=== PATIENT | female | born 1990 | race Caucasian/White ===

== ENCOUNTER 2018-03-25 01:46 | Emergency (ER) | payer MEDICAID ==
[~2018-03-25] VITALS: Ht 162.6 cm; Wt 84.0 kg
[2018-03-25 02:15] VITALS: BP 112/69
[2018-03-25] MEDS ORDERED: amoxicillin 250mg capsule PO ONE (02:35)
[2018-03-25] MEDS ORDERED: ibuprofen tablet 400 MG TABLET PO ONE (02:35)
[2018-03-25] MEDS ORDERED: IBUP-1986 PO (02:36)
[2018-03-25] MEDS ORDERED: AMOX500C2 PO (02:36)
[2018-03-25] MEDS ORDERED: HYDR-569 PO (02:36)
== END 2018-03-25 02:58 | disposition home or self-care (01) ==
LOC: ER 01:46
DX: K02.9 Dental caries, unspecified (principal); K08.89 Other specified disorders of teeth and supporting structures; J45.909 Unspecified asthma, uncomplicated
CPT/HCPCS: 99283

== ENCOUNTER 2018-11-12 10:39 | Emergency (ER) | payer MEDICAID ==
[~2018-11-12] VITALS: Ht 162.6 cm; Wt 99.1 kg
[~2018-11-12 10:39] MED LIST: ACET-812 PO; HYDR-4383 PO; IBUP-1986 PO
[2018-11-12 12:46] LABS: URINE HCG NEGATIVE (NEG)
[2018-11-12] MEDS ORDERED: PENI500T2 PO (13:07)
[2018-11-12] MEDS ORDERED: acetaminophen 325mg tablet PO ONE (13:15)
[2018-11-12 13:24] VITALS: BP 126/80
== END 2018-11-12 13:26 | disposition home or self-care (01) ==
LOC: ER 10:39
DX: K08.89 Other specified disorders of teeth and supporting structures (principal); J45.909 Unspecified asthma, uncomplicated; Z79.899 Other long term (current) drug therapy
CPT/HCPCS: 81025; 99283

== ENCOUNTER 2019-06-24 17:11 | Emergency (ER) | payer MEDICAID ==
[~2019-06-24] VITALS: Ht 162.6 cm; Wt 67.0 kg
[2019-06-24] MEDS ORDERED: normal saline 1000ML IV soln IVB ONE (17:50)
[2019-06-24] MEDS ORDERED: ondansetron/PF 4mg/2ml inj IV ONE (17:50)
[2019-06-24 17:55] LABS: URINE HCG NEGATIVE (NEG)
[2019-06-24 17:56] LABS: CLARITY,URINE SLIGHTLY CLOUDY (Clear); COLOR,URINE YELLOW (Yellow); GLUCOSE, URINE NEGATIVE (Neg); KETONES,URINE >=80 mg/dl (Neg); LEUKOCYTE ESTERASE ,URINE NEGATIVE (Neg); NITRITES, URINE NEGATIVE (Neg); OCCULT BLOOD,URINE TRACE-INTACT (Neg); PH,URINE 5.5 (4.8-8.0); PROTEIN,URINE NEGATIVE (Neg)
[2019-06-24 17:59] LABS: UA COLLECTION TYPE CLN CATCH MIDSTREAM
[2019-06-24 18:02] LABS: BACTERIA,URINE 1+ /HPF (Neg); MUCUS STRANDS MANY /LPF (Neg); RBC,URINE 0-2 /HPF (0-2); SQUAMOUS EPITHELIAL CELL,UR MANY /LPF (FEW); WBC,URINE 0-4 /HPF (0-4)
[2019-06-24] MEDS ORDERED: ondansetron 4mg rapidly disintigrating tab PO ONE (18:30)
--- NOTE | 2019-06-24 19:08 | NUR ---
unable to insert IV. PA is aware IV meds canceled. PO meds ordered
[2019-06-24] MEDS ORDERED: ONDA4TAB6 PO (19:21)
[2019-06-24 19:31] VITALS: BP 105/58
== END 2019-06-24 19:33 | disposition home or self-care (01) ==
LOC: ER 17:11
DX: R11.2 Nausea with vomiting, unspecified (principal); R10.13 Epigastric pain; R30.0 Dysuria; J45.909 Unspecified asthma, uncomplicated; Z79.899 Other long term (current) drug therapy
CPT/HCPCS: 36415; 81001; 81025; 99283; J2405

== ENCOUNTER 2020-05-19 20:39 | Emergency (ER) | payer MEDICAID ==
[~2020-05-19] VITALS: Ht 162.6 cm; Wt 58.0 kg
[~2020-05-19 20:39] MED LIST changes: +ONDA4TAB6 PO
[2020-05-19 21:26] LABS: COLOR,URINE YELLOW (Yellow); GLUCOSE, URINE NEGATIVE (Neg); KETONES,URINE NEGATIVE (Neg); LEUKOCYTE ESTERASE ,URINE NEGATIVE (Neg); NITRITES, URINE NEGATIVE (Neg); OCCULT BLOOD,URINE LARGE (Neg); PROTEIN,URINE TRACE mg/dl (Neg); UROBILINOGEN,URINE >=8.0 E.U/dL (0.2-1.0)
[2020-05-19 21:32] LABS: URINE HCG NEGATIVE (NEG)
[2020-05-19 21:35] LABS: CLARITY,URINE SLIGHTLY CLOUDY (Clear); UA COLLECTION TYPE CLN CATCH MIDSTREAM
[2020-05-19] MEDS ORDERED: pantoprazole 40 MG vial IV ONE (21:35)
[2020-05-19] MEDS ORDERED: normal saline 1000ML IV soln IVB ONE (21:35)
[2020-05-19] MEDS ORDERED: ondansetron/PF 4mg/2ml inj IV ONE (21:35)
[2020-05-19] MEDS ORDERED: morphine 4 MG/ML inj SYRINge IV ONE (21:35)
[2020-05-19 21:36] LABS: BACTERIA,URINE FEW /HPF (Neg); MUCUS STRANDS FEW /LPF (Neg); RBC,URINE 0-2 /HPF (0-2); SQUAMOUS EPITHELIAL CELL,UR MODERATE /LPF (FEW); WBC,URINE 0-4 /HPF (0-4)
[2020-05-19] MEDS ORDERED: ONDA8TAB13 PO (21:53)
[2020-05-19] MEDS ORDERED: PANT-47 PO (21:53)
[2020-05-19 22:02] LABS: BASOPHILS # (AUTO) 0.1 X10'3 (0-0.2); BASOPHILS % (AUTO) 0.5 % (0-1); EOSINOPHILS # (AUTO) 0.1 X10'3 (0-0.9); EOSINOPHILS % (AUTO) 1.1 % (0-6); HEMATOCRIT 41.7 % (35.0-45.0); HEMOGLOBIN 14.4 g/dl (12.0-16.0); LYMPHOCYTES % (AUTO) 18.8 % (21-51); MEAN CORPUSCULAR HEMOGLOBIN 30.2 PG (27.0-31.0); MEAN CORPUSCULAR HGB CONC 34.6 g/dL (33.0-36.5); MEAN CORPUSCULAR VOLUME 87.2 FL (78-98); MEAN PLATELET VOLUME 7.9 FL (7.4-10.4); MONOCYTES # (AUTO) 0.5 X10'3 (0-0.9); NEUTROPHILS # (AUTO) 7.7 X10'3 (1.8-7.7); NEUTROPHILS % (AUTO) 74.6 % (42-75); PLATELET COUNT 263 X10'3 (140-440); RED BLOOD COUNT 4.78 X10'6 (4.20-5.60); RED CELL DISTRIBUTION WIDTH 13.3 % (11.5-14.5); WHITE BLOOD COUNT 10.4 X10'3 (4.5-11.0)
[2020-05-19 22:16] LABS: ALANINE AMINOTRANSFERASE 6 U/L (12-78); ALBUMIN 3.7 G/DL (3.4-5.0); ALBUMIN/GLOBULIN RATIO 1.2 (1.1-1.5); ALKALINE PHOSPHATASE 48 IU/L (46-116); ANION GAP 11 (8-16); ASPARTATE AMINO TRANSFERASE 8 U/L (10-37); BLOOD UREA NITROGEN 7 MG/DL (7-18); BUN/CREATININE RATIO 10.8 (6.6-38.0); CALCIUM 8.5 MG/DL (8.5-10.1); CHLORIDE 105 MMOL/L (99-107); CREATININE 0.65 MG/DL (0.40-0.90); GLUCOSE 103 MG/DL (70-104); LIPASE 74 U/L (73-393); POTASSIUM 3.2 MMOL/L (3.5-5.1); SODIUM 139 MMOL/L (135-145); TOTAL CARBON DIOXIDE 23.2 MMOL/L (24-32); TOTAL PROTEIN 6.7 G/DL (6.4-8.2); eGFR > 90 ML/MIN
[2020-05-19 23:38] VITALS: BP 109/70
== END 2020-05-19 23:39 | disposition home or self-care (01) ==
LOC: ER 20:40
DX: R10.12 Left upper quadrant pain (principal); R10.11 Right upper quadrant pain; R11.0 Nausea; J45.909 Unspecified asthma, uncomplicated; F17.200 Nicotine dependence, unspecified, uncomplicated; R10.13 Epigastric pain; Z79.899 Other long term (current) drug therapy
CPT/HCPCS: 36415; 80053; 81001; 81025; 83690; 85025; 96361; 96374; 96375; 99284; C9113; J2270; J2405; J7030

== ENCOUNTER 2020-10-25 19:18 | Emergency (ER) | payer MEDICAID, OTHER ==
[~2020-10-25] VITALS: Ht 162.6 cm; Wt 64.1 kg
[~2020-10-25 19:18] MED LIST changes: +ONDA8TAB13 PO; +PANT-47 PO
[2020-10-25 22:31] VITALS: BP 119/71
== END 2020-10-25 22:31 | disposition home or self-care (01) ==
LOC: ER 19:18
DX: O20.0 Threatened abortion (principal); O99.511 Diseases of the respiratory system complicating pregnancy, first trimester; J45.909 Unspecified asthma, uncomplicated; Z3A.01 Less than 8 weeks gestation of pregnancy; Z98.890 Other specified postprocedural states; Z79.899 Other long term (current) drug therapy
CPT/HCPCS: 36415; 84702; 99283

== ENCOUNTER 2021-05-15 16:29 | Emergency (ER) | payer BC ==
[~2021-05-15] VITALS: Ht 167.6 cm; Wt 66.8 kg
[2021-05-15 18:12] LABS: BASOPHILS # (AUTO) 0.2 X10'3 (0-0.2); BASOPHILS % (AUTO) 1.3 % (0-1); EOSINOPHILS # (AUTO) 0.2 X10'3 (0-0.9); EOSINOPHILS % (AUTO) 1.7 % (0-6); HEMATOCRIT 42.1 % (35.0-45.0); HEMOGLOBIN 14.6 g/dl (12.0-16.0); LYMPHOCYTES # (AUTO) 3.5 X10'3 (1.1-4.8); LYMPHOCYTES % (AUTO) 25.7 % (21-51); MEAN CORPUSCULAR HEMOGLOBIN 30.5 PG (27.0-31.0); MEAN CORPUSCULAR HGB CONC 34.7 g/dL (33.0-36.5); MEAN CORPUSCULAR VOLUME 87.6 FL (78-98); MEAN PLATELET VOLUME 7.8 FL (7.4-10.4); MONOCYTES # (AUTO) 0.8 X10'3 (0-0.9); MONOCYTES % (AUTO) 5.9 % (2-12); NEUTROPHILS # (AUTO) 8.9 X10'3 (1.8-7.7); NEUTROPHILS % (AUTO) 65.4 % (42-75); PLATELET COUNT 270 X10'3 (140-440); RED BLOOD COUNT 4.81 X10'6 (4.20-5.60); RED CELL DISTRIBUTION WIDTH 13.9 % (11.5-14.5); WHITE BLOOD COUNT 13.6 X10'3 (4.5-11.0)
[2021-05-15 18:34] LABS: ALANINE AMINOTRANSFERASE 20 U/L (12-78); ALBUMIN 4.3 G/DL (3.4-5.0); ALBUMIN/GLOBULIN RATIO 1.2 (1.1-1.5); ALKALINE PHOSPHATASE 47 IU/L (46-116); ANION GAP 13 (8-16); ASPARTATE AMINO TRANSFERASE 18 U/L (10-37); BILIRUBIN,TOTAL 1.1 MG/DL (0.1-1.0); BLOOD UREA NITROGEN 10 MG/DL (7-18); BUN/CREATININE RATIO 14.7 (6.6-38.0); CALCIUM 9.1 MG/DL (8.5-10.1); CHLORIDE 106 MMOL/L (99-107); CREATININE 0.68 MG/DL (0.40-0.90); GLUCOSE 91 MG/DL (70-104); LIPASE 81 U/L (73-393); POTASSIUM 3.4 MMOL/L (3.5-5.1); SODIUM 142 MMOL/L (135-145); TOTAL CARBON DIOXIDE 23.3 MMOL/L (24-32); eGFR > 90 ML/MIN
[2021-05-15 20:50] LABS: URINE HCG NEGATIVE (NEG)
[2021-05-15 20:51] VITALS: BP 114/66
[2021-05-15 20:59] LABS: CLARITY,URINE SLIGHTLY CLOUDY (Clear); COLOR,URINE YELLOW (Yellow); UA COLLECTION TYPE CLN CATCH MIDSTREAM
[2021-05-15 21:00] LABS: GLUCOSE, URINE NEGATIVE (Neg); KETONES,URINE 40 mg/dl (Neg); LEUKOCYTE ESTERASE ,URINE NEGATIVE (Neg); NITRITES, URINE NEGATIVE (Neg); OCCULT BLOOD,URINE NEGATIVE (Neg); PROTEIN,URINE NEGATIVE (Neg); UROBILINOGEN,URINE 0.2 E.U/dL (0.2-1.0)
[2021-05-15] MEDS ORDERED: FAMO40TA59 PO (21:02)
[2021-05-15 21:05] LABS: WBC,URINE 0-4 /HPF (0-4)
[2021-05-15 21:06] LABS: BACTERIA,URINE FEW /HPF (Neg); MUCUS STRANDS FEW /LPF (Neg); RBC,URINE 0-2 /HPF (0-2); SQUAMOUS EPITHELIAL CELL,UR MANY /LPF (FEW)
[2021-05-15 21:20] LABS: PLATELET ESTIMATE NORMAL; TOTAL CELLS COUNTED 100
== END 2021-05-15 21:20 | disposition home or self-care (01) ==
LOC: ER 16:29
DX: R10.12 Left upper quadrant pain (principal); J45.909 Unspecified asthma, uncomplicated; Z98.890 Other specified postprocedural states; Z79.899 Other long term (current) drug therapy
CPT/HCPCS: 36415; 80053; 81001; 81025; 83690; 85007; 85025; 99283

== ENCOUNTER 2023-01-13 12:46 | Emergency (ER) | payer BC ==
[~2023-01-13] VITALS: Ht 162.6 cm; Wt 80.0 kg
[~2023-01-13 12:46] MED LIST changes: +FAMO40TA59 PO
[2023-01-13 12:52] VITALS: BP 142/88
[2023-01-13] MEDS ORDERED: CHLO473M3 PO (13:33)
== END 2023-01-13 14:25 | disposition home or self-care (01) ==
LOC: ER 12:47
DX: K06.8 Other specified disorders of gingiva and edentulous alveolar ridge (principal); J45.909 Unspecified asthma, uncomplicated
CPT/HCPCS: 99282

== ENCOUNTER 2025-02-01 20:06 | Emergency (ER) | payer BC ==
[~2025-02-01] VITALS: Ht 162.6 cm; Wt 77.4 kg
[~2025-02-01 20:06] MED LIST changes: +CHLO473M13 PO; +ONDA-245 PO; -ONDA8TAB13 PO
[2025-02-01 20:30] VITALS: BP 138/99; PULSE 109; RESP 16; TEMP 97.7; O2SAT 98
[2025-02-01 21:17] LABS: URINE HCG NEGATIVE (NEG)
[2025-02-01 21:19] LABS: LEUKOCYTE ESTERASE ,URINE NEGATIVE (Neg); NITRITES, URINE POSITIVE (Neg); OCCULT BLOOD,URINE NEGATIVE (Neg)
[2025-02-01 21:20] LABS: UA COLLECTION TYPE CLN CATCH MIDSTREAM
[2025-02-01 21:26] LABS: SQUAMOUS EPITHELIAL CELL,UR FEW /LPF (FEW)
[2025-02-01 21:30] LABS: MEAN PLATELET VOLUME 7.7 FL (7.4-10.4); RED CELL DISTRIBUTION WIDTH 17.2 % (11.5-14.5)
[2025-02-01 21:48] LABS: CREATININE 0.56 MG/DL (0.40-0.90); TOTAL CARBON DIOXIDE 20.6 MMOL/L (24-32); eCRCL 123 ML/MIN; eGFR > 90 ML/MIN
== END 2025-02-01 23:37 | disposition left against medical advice (07) ==
LOC: ER 20:06
DX: R10.9 Unspecified abdominal pain (principal); M54.9 Dorsalgia, unspecified; Z53.21 Procedure and treatment not carried out due to patient leaving prior to being seen by health care provider
CPT/HCPCS: 36415; 80053; 81001; 81025; 83690; 85025; 87077; 87088; 87186